=== PATIENT | female | born 1945 | race Caucasian/White ===

== ENCOUNTER → 2018-12-03 | Outpatient (REF) | LOC: M LAB LCGH 15:23 | PROVIDERS: ATTEND Nurse Practitioner Family | DX: D04.4 Carcinoma in situ of skin of scalp and neck (principal); C44.42 Squamous cell carcinoma of skin of scalp and neck ==

== ENCOUNTER → 2019-08-01 | Outpatient (CLI) | payer MEDICARE ==
--- NOTE | 2019-08-01 09:08 | REP ---
CT ABDOMEN/PELVIS WITHOUT CONTRAST: HISTORY: Chronic kidney disease stage III. Cirrhosis of the liver. Urinary tract infection. Persistent right renal colic. No comparison study. 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 Axial CT images at the lung bases demonstrate no infiltrate. There is a noncalcified 6 mm pulmonary nodule in the left lower lobe. Consider chest CT study. There are granulomatous calcifications in the liver and the spleen. The left lobe of the liver is somewhat prominent. Liver size felt to be borderline overall. The spleen measures 14.0 cm in greatest diameter and is considered mildly enlarged. A normal right adrenal gland is seen. There is a mixed density mass in the left adrenal gland measuring 3.7 cm x 3.7 x 3.0 cm. This contains a focal calcification and some low density areas consistent with intralesional fat. This is felt to be consistent with a benign adrenal adenoma. No abnormalities noted in the pancreas. Clips are visible in the gallbladder fossa. The kidneys appear morphologically intact. No intrarenal mass, calculus, or hydronephrosis is seen. Normal caliber aorta. No retroperitoneal mass or adenopathy is seen. The uterus is surgically absent. There is no abnormality in the small or large intestine. The appendix is surgically absent. Multilevel lumbar laminectomies and diffusion hardware seen. IMPRESSION: There is no evidence of hydronephrosis or ureteral calculus. There is a 3.7 cm mass in the left adrenal gland containing intralesional fat consistent with a benign left adrenal adenoma. The left lobe of the liver is prominent and borderline liver size is seen. Mild splenomegaly. Also noted is a 6 mm noncalcified nodule in the left lower lobe of the lung. Chest CT study is suggested for further evaluation of the lung palmer. Electronically Signed by Madan Stanton MD 08/01/2019 10:34 A
== END ==
LOC: M RAD 07:23
PROVIDERS: ATTEND Internal Medicine Nephrology
DX: N18.3 Chronic kidney disease, stage 3 (moderate) (principal); K74.69 Other cirrhosis of liver; N39.0 Urinary tract infection, site not specified; R91.1 Solitary pulmonary nodule; R16.1 Splenomegaly, not elsewhere classified; E27.8 Other specified disorders of adrenal gland

== ENCOUNTER → 2019-11-19 | Outpatient (REF) | payer MEDICARE | LOC: M LAB REF 16:52 | PROVIDERS: ATTEND Internal Medicine Nephrology | DX: N39.0 Urinary tract infection, site not specified (principal) ==

== ENCOUNTER → 2020-01-06 | Outpatient (CLI) | payer MEDICARE ==
--- NOTE | 2020-01-06 09:47 | REP ---
INDICATION: NONALCOHOLIC STEATOHEPATITIS (SCHROEDER) COMPARISON: None. TECHNIQUE: Real time zuñiga scale ultrasound examination using curved array transducer. FINDINGS: Liver is mildly enlarged measuring 18 cm in craniocaudal length and demonstrates increased parenchymal echotexture along with few scattered calcified granulomata. The pancreas is incompletely evaluated due to interposed bowel gas but visualized portions appear normal. Evidence for prior cholecystectomy. Common bile duct is normal at 7 mm. Right kidney is normal in appearance without hydronephrosis and measures 10.2 x 4.9 x 4.6 cm. No ascites. IMPRESSION: Mild hepatomegaly and diffuse hepatosteatosis. <Electronically signed by Bj Villalba > 01/06/20 [id number]
== END ==
LOC: M RAD 09:04
PROVIDERS: ATTEND Internal Medicine Gastroenterology
DX: K75.81 Nonalcoholic steatohepatitis (NASH) (principal)

== ENCOUNTER → 2020-04-28 | Outpatient (REF) | payer MEDICARE ==
[2020-04-28 18:37] LABS: APPEARANCE, URINE CLEAR (CLEAR); BACTERIA, URINE AUTO NEGATIVE (NEGATIVE); BILIRUBIN, URINE AUTO NEGATIVE (NEGATIVE); BLOOD, URINE BLOOD NEGATIVE (NEGATIVE); COLOR, URINE STRAW (YELLOW); GLUCOSE, URINE (UA) AUTO NEGATIVE (NEGATIVE); KETONE, URINE AUTO NEGATIVE (NEGATIVE); LEUKOCYTE ESTERASE, URINE AUTO 2+ (NEGATIVE); NITRITE, URINE AUTO NEGATIVE (NEGATIVE); PROTEIN, URINE AUTO NEGATIVE (NEGATIVE); RBC, URINE AUTO 1 /HPF (0-3); SPECIFIC GRAVITY URINE AUTO 1.006 (1.002-1.035); SQUAMOUS EPITHELIAL CELL UR AU 0 /HPF (0-6); UROBILINOGEN, URINE AUTO 0.2 mg/dL (0.0-2.0); WBC, URINE AUTO 39 /HPF (0-3)
== END ==
LOC: M LAB REF 16:39
PROVIDERS: ATTEND Internal Medicine Nephrology
DX: N18.31 Chronic kidney disease, stage 3a (principal); N39.0 Urinary tract infection, site not specified; K74.69 Other cirrhosis of liver

== ENCOUNTER → 2020-05-12 | Outpatient (CLI) | payer MEDICARE ==
[~2020-05-12] MED LIST: GASTROGRAFIN SOLUTION 30ML (Q9963) As Ordered ONE; ISOVUE-370 76% 100ML VIAL As Ordered ONE
--- NOTE | 2020-05-12 18:28 | REP ---
INDICATION: CIRRHOSIS. COMPARISON: 08/01/2019. TECHNIQUE: CT of the abdomen and pelvis without and with IV contrast and with bowel contrast FINDINGS: Visualized lung palmer again demonstrate a 6 mm lung nodule in the left lower lobe, unchanged.. The hepatic parenchyma is homogeneous on both phases of the study. There are no hepatic masses. The left lobe of the liver appears enlarged, particularly on the coronal images in the anterior border of the liver is very faintly nodular. These findings are compatible with the clinical diagnosis of cirrhosis. There is no ascites. There are surgical clips in the gallbladder fossa. The pancreas is unremarkable. Next CT line the spleen is again enlarged measuring 14 cm transversely as previously but homogeneous and otherwise unremarkable. The right adrenal is unremarkable. There is a stable 3.7 cm left adrenal mass, unchanged, likely benign. The kidneys are unremarkable. The abdominal aorta is unremarkable. There is no periaortic adenopathy or mass. The bowel and mesentery are unremarkable. There is no ascites. Pelvis: There is a right hip arthroplasty as previously. The pelvic bowel loops are unremarkable. There appear to be surgical clips in the pelvis. There is no ascites or adenopathy. There are no lytic, blastic or destructive skeletal changes. There is multilevel surgical fusion of the lumbar spine and multilevel intervertebral disc spacers in the lumbar spine. IMPRESSION: The left lobe of the liver appears enlarged and the anterior margin of the liver is mildly nodular. These findings are compatible with the clinical history of cirrhosis. The There are no hepatic masses. There is no ascites. The spleen is enlarged, unchanged There is a stable left adrenal mass, unchanged. The The 6 mm nodule in the lower lobe of the left lung is stable and unchanged. <Electronically signed by Angel Donato > 05/12/20 [id number]
== END ==
LOC: M RAD 15:12
PROVIDERS: ATTEND Internal Medicine Gastroenterology
DX: K59.1 Functional diarrhea (principal); K75.81 Nonalcoholic steatohepatitis (NASH); K74.60 Unspecified cirrhosis of liver; K57.30 Diverticulosis of large intestine without perforation or abscess without bleeding; Z86.010 Personal history of colon polyps; Z83.71 Family history of colonic polyps
CPT/HCPCS: 74178; Q9963; Q9967

== ENCOUNTER → 2020-10-06 | Outpatient (REF) | payer MEDICARE | LOC: M LAB REF 17:13 | PROVIDERS: ATTEND Internal Medicine Nephrology | DX: E83.42 Hypomagnesemia (principal); N39.0 Urinary tract infection, site not specified ==

== ENCOUNTER → 2020-10-26 | Outpatient (REF) | payer MEDICARE ==
[2020-10-26 13:51] LABS: APPEARANCE, URINE HAZY (CLEAR); BILIRUBIN, URINE AUTO NEGATIVE (NEGATIVE); BLOOD, URINE BLOOD NEGATIVE (NEGATIVE); COLOR, URINE YELLOW (YELLOW); GLUCOSE, URINE (UA) AUTO NEGATIVE (NEGATIVE); KETONE, URINE AUTO NEGATIVE (NEGATIVE); LEUKOCYTE ESTERASE, URINE AUTO 3+ (NEGATIVE); NITRITE, URINE AUTO NEGATIVE (NEGATIVE); PROTEIN, URINE AUTO NEGATIVE (NEGATIVE); SPECIFIC GRAVITY URINE AUTO 1.012 (1.002-1.035); UROBILINOGEN, URINE AUTO 0.2 mg/dL (0.0-2.0)
[2020-10-26 13:56] LABS: BACTERIA, URINE AUTO 3+ (NEGATIVE); MUCUS, URINE SMALL (NEGATIVE); RBC, URINE AUTO 4 /HPF (0-3); SQUAMOUS EPITHELIAL CELL UR AU 5 /HPF (0-6); WBC, URINE AUTO 118 /HPF (0-3)
== END ==
LOC: M SFHCPLAZ 13:25
PROVIDERS: ATTEND Internal Medicine Infectious Disease
DX: N39.0 Urinary tract infection, site not specified (principal)
CPT/HCPCS: 81001; 87088; 87184; 87186; G0463

== ENCOUNTER → 2021-02-09 | Outpatient (REF) | payer MEDICARE | LOC: M LAB REF 12:50 | PROVIDERS: ATTEND Nurse Practitioner Family | DX: E83.42 Hypomagnesemia (principal) ==

== ENCOUNTER → 2021-02-09 | Outpatient (REF) | payer MEDICARE ==
[2021-02-09 13:19] LABS: APPEARANCE, URINE TURBID (CLEAR); BACTERIA, URINE AUTO 2+ (NEGATIVE); BILIRUBIN, URINE AUTO NEGATIVE (NEGATIVE); BLOOD, URINE BLOOD NEGATIVE (NEGATIVE); COLOR, URINE YELLOW (YELLOW); GLUCOSE, URINE (UA) AUTO NEGATIVE (NEGATIVE); KETONE, URINE AUTO NEGATIVE (NEGATIVE); LEUKOCYTE ESTERASE, URINE AUTO 3+ (NEGATIVE); NITRITE, URINE AUTO POSITIVE (NEGATIVE); PROTEIN, URINE AUTO NEGATIVE (NEGATIVE); RBC, URINE AUTO 7 /HPF (0-3); SPECIFIC GRAVITY URINE AUTO 1.011 (1.002-1.035); SQUAMOUS EPITHELIAL CELL UR AU 5 /HPF (0-6); TRANSITIONAL EPITHELIAL AUTO 2 /HPF; UROBILINOGEN, URINE AUTO 0.2 mg/dL (0.0-2.0); WBC, URINE AUTO TNTC /HPF (0-3)
== END ==
LOC: M SMT 12:51
PROVIDERS: ATTEND Nurse Practitioner Women's Health
DX: N39.0 Urinary tract infection, site not specified (principal); E83.42 Hypomagnesemia

== ENCOUNTER → 2021-04-16 | Outpatient (REF) | payer MEDICARE ==
[2021-04-16 14:00] LABS: APPEARANCE, URINE CLOUDY (CLEAR); BACTERIA, URINE AUTO NEGATIVE (NEGATIVE); BILIRUBIN, URINE AUTO NEGATIVE (NEGATIVE); BLOOD, URINE BLOOD NEGATIVE (NEGATIVE); CALCIUM OXALATE CRYSTALS MODERATE; COLOR, URINE YELLOW (YELLOW); GLUCOSE, URINE (UA) AUTO NEGATIVE (NEGATIVE); KETONE, URINE AUTO TRACE mg/dL (NEGATIVE); LEUKOCYTE ESTERASE, URINE AUTO 1+ (NEGATIVE); MUCUS, URINE SMALL (NEGATIVE); NITRITE, URINE AUTO NEGATIVE (NEGATIVE); PROTEIN, URINE AUTO NEGATIVE (NEGATIVE); RBC, URINE AUTO 3 /HPF (0-3); SPECIFIC GRAVITY URINE AUTO 1.017 (1.002-1.035); SQUAMOUS EPITHELIAL CELL UR AU 11 /HPF (0-6); WBC, URINE AUTO 18 /HPF (0-3)
== END ==
LOC: M SMT 13:01
PROVIDERS: ATTEND Urology
DX: N39.0 Urinary tract infection, site not specified (principal)

== ENCOUNTER → 2021-06-28 | Outpatient (CLI) | payer MEDICARE | LOC: M WHC 10:13 | PROVIDERS: ATTEND Internal Medicine Gastroenterology | DX: K74.60 Unspecified cirrhosis of liver (principal); K76.81 Hepatopulmonary syndrome; Z86.010 Personal history of colon polyps ==

== ENCOUNTER → 2021-06-29 | Outpatient (CLI) | payer MEDICARE ==
[2021-06-29 15:33] LABS: ALBUMIN 3.9 GM/DL (3.2-5.2); BILIRUBIN,TOTAL 0.4 MG/DL (0.2-1.0); CALCIUM LEVEL 10.2 MG/DL (8.8-10.2); CREATININE FOR GFR 1.51 MG/DL (0.55-1.30); GLOMERULAR FILTRATION RATE 35.9 (>39); TOTAL PROTEIN 7.1 GM/DL (6.4-8.2)
[2021-06-29 15:34] LABS: HEMATOCRIT 42.9 % (36.0-47.0); HEMOGLOBIN 13.4 g/dl (12.0-15.5); MEAN CORPUSCULAR HEMOGLOBIN 28.5 pg (27.0-33.0); MEAN CORPUSCULAR HGB CONC 31.2 g/dl (32.0-36.5); MEAN CORPUSCULAR VOLUME 91.3 fl (80.0-96.0); PLATELET COUNT, AUTOMATED 357 10^3/uL (150-450); WHITE BLOOD COUNT 11.8 10^3/uL (4.0-10.0)
[2021-06-29 15:51] LABS: INR 0.94
== END ==
LOC: M PLALAB 13:01
PROVIDERS: ATTEND Internal Medicine Gastroenterology
DX: K75.81 Nonalcoholic steatohepatitis (NASH) (principal); Z86.010 Personal history of colon polyps; K74.60 Unspecified cirrhosis of liver; I85.00 Esophageal varices without bleeding

== ENCOUNTER → 2021-08-11 | Outpatient (REF) | payer MEDICARE ==
[2021-08-11 18:44] LABS: APPEARANCE, URINE HAZY (CLEAR); BACTERIA, URINE AUTO 1+ (NEGATIVE); BILIRUBIN, URINE AUTO NEGATIVE (NEGATIVE); BLOOD, URINE BLOOD NEGATIVE (NEGATIVE); COLOR, URINE YELLOW (YELLOW); GLUCOSE, URINE (UA) AUTO NEGATIVE (NEGATIVE); KETONE, URINE AUTO NEGATIVE (NEGATIVE); LEUKOCYTE ESTERASE, URINE AUTO 1+ (NEGATIVE); NITRITE, URINE AUTO NEGATIVE (NEGATIVE); PROTEIN, URINE AUTO NEGATIVE (NEGATIVE); RBC, URINE AUTO 1 /HPF (0-3); SPECIFIC GRAVITY URINE AUTO 1.013 (1.002-1.035); SQUAMOUS EPITHELIAL CELL UR AU 2 /HPF (0-6); UROBILINOGEN, URINE AUTO 0.2 mg/dL (0.0-2.0); WBC, URINE AUTO 22 /HPF (0-3)
== END ==
LOC: M SMT 16:53
PROVIDERS: ATTEND Nurse Practitioner Women's Health
DX: R30.0 Dysuria (principal)

== ENCOUNTER → 2022-03-15 | Outpatient (CLI) | payer MEDICARE ==
[2022-03-15 09:34] LABS: HEMATOCRIT 42.3 % (36.0-47.0); HEMOGLOBIN 13.4 g/dl (12.0-15.5); MEAN CORPUSCULAR HGB CONC 31.7 g/dl (32.0-36.5); MEAN CORPUSCULAR VOLUME 88.3 fl (80.0-96.0); PLATELET COUNT, AUTOMATED 351 10^3/uL (150-450); RED BLOOD COUNT 4.79 10^6/uL (4.00-5.40); WHITE BLOOD COUNT 14.9 10^3/uL (4.0-10.0)
[2022-03-15 09:45] LABS: INR 0.91; PROTHROMBIN TIME 12.5 SECONDS (12.5-14.5)
[2022-03-15 10:09] LABS: BILIRUBIN,TOTAL 0.6 MG/DL (0.3-1.2); CALCIUM LEVEL 9.5 MG/DL (8.3-10.6); CREATININE FOR GFR 1.4 MG/DL (0.55-1.30); MAGNESIUM LEVEL 1.9 MG/DL (1.8-2.4); POTASSIUM SERUM 3.8 MMOL/L (3.5-5.1)
[2022-03-15 10:10] LABS: TOTAL 25(OH) VITAMIN D 52.2 NG/ML (20.0-100.0)
== END ==
LOC: M RAD 08:26
PROVIDERS: ATTEND Internal Medicine Gastroenterology
DX: K74.60 Unspecified cirrhosis of liver (principal)

== ENCOUNTER → 2022-09-12 | Outpatient (CLI) | payer MEDICARE | LOC: M RAD 09:18 | PROVIDERS: ATTEND Internal Medicine Gastroenterology | DX: K74.60 Unspecified cirrhosis of liver (principal); K22.70 Barrett's esophagus without dysplasia; K44.9 Diaphragmatic hernia without obstruction or gangrene; K75.81 Nonalcoholic steatohepatitis (NASH); E55.9 Vitamin D deficiency, unspecified; E61.2 Magnesium deficiency ==

== ENCOUNTER → 2022-09-29 | Outpatient (REF) | payer MEDICARE | LOC: M LAB REF 17:11 | PROVIDERS: ATTEND Nurse Practitioner Family | DX: N39.0 Urinary tract infection, site not specified (principal) ==

== ENCOUNTER → 2023-03-30 | Outpatient (CLI) | payer MEDICARE | LOC: M WHC 08:49 | PROVIDERS: ATTEND Internal Medicine Gastroenterology | DX: K44.9 Diaphragmatic hernia without obstruction or gangrene (principal); K75.81 Nonalcoholic steatohepatitis (NASH); K22.70 Barrett's esophagus without dysplasia; K74.60 Unspecified cirrhosis of liver; I85.00 Esophageal varices without bleeding ==

== ENCOUNTER → 2023-07-05 | Outpatient (REF) | payer MEDICARE | LOC: M LAB REF 17:31 | PROVIDERS: ATTEND Nurse Practitioner Family | DX: N39.0 Urinary tract infection, site not specified (principal) ==